=== PATIENT | male | born 1970 | race Two or more races ===

== ENCOUNTER 2021-01-22 11:40 | Outpatient (REF) | payer MEDICAID, SELFPAY ==
--- NOTE | ~2021-01-22 | XR_ITS ---
EXAMINATION: XR SHOULDER, RIGHT CLINICAL INFORMATION: Right shoulder pain COMPARISON: Chest radiographs 02/09/2019. TECHNIQUE: Right shoulder is imaged in 5 views. FINDINGS: There is no evidence of fracture or dislocation or destructive process. There is mild laxity of the humerus lower in position, aligning with the lower half glenoid fossa on frontal view. This is also suggested on the chest radiograph 2019. There are surgical clips overlying the right anterior shoulder soft tissues. The acromioclavicular alignment is normal. There is no visible rotator cuff calcifications. XR/XR shoulder RT min 2V IMPRESSION: 1. Laxity right shoulder with inferior positioning humeral head with respect to the glenoid fossa. 2. Acromioclavicular alignment normal. No fracture or dislocation or destructive process.
== END 2021-01-22 11:41 | disposition home or self-care (01) ==
LOC: HO.XRAY 11:40
PROVIDERS: PCP Registered Nurse; Visit Provider Registered Nurse
DX: G89.29 Other chronic pain (principal); M25.511 Pain in right shoulder
CPT/HCPCS: 73030

== ENCOUNTER 2021-01-23 10:47 | Outpatient (REF) | payer MEDICAID, SELFPAY ==
--- NOTE | ~2021-01-23 | XR_ITS ---
EXAMINATION: CERVICAL SPINE AND SOFT TISSUE NECK X-RAYS CLINICAL INFORMATION: Neck and right shoulder pain COMPARISON: Cervical spine MRI July 2008 TECHNIQUE: 5 views of the cervical spine and 2 views of the soft tissues of the neck FINDINGS: Cervical spine: Bone alignment is normal. No fracture or dislocation is seen. There is spondylosis at C3-C4 C4-C5 and C5-C6. Disc spaces are normal. There is right-sided neuroforaminal narrowing from bony osteophyte from C3-C4 to C5-C6. There is left-sided neuroforaminal narrowing from bony osteophyte from C3-C4 to C5-C6. Prevertebral soft tissues are normal. Soft tissues of the neck: Prevertebral soft tissues are normal. The epiglottis is normal. No abnormal air collection is seen. There are radiopaque densities seen in the right lateral neck and adjacent to the angle of the mandible questionable for calcifications. XR/XR soft tissue neck IMPRESSION: Cervical spine: Degenerative changes. Soft tissues of the neck: Radiopaque densities in the soft tissues of the right side of the neck and angle of the mandible, question representing calcifications.
--- NOTE | ~2021-01-23 | XR_ITS ---
EXAMINATION: CERVICAL SPINE AND SOFT TISSUE NECK X-RAYS CLINICAL INFORMATION: Neck and right shoulder pain COMPARISON: Cervical spine MRI July 2008 TECHNIQUE: 5 views of the cervical spine and 2 views of the soft tissues of the neck FINDINGS: Cervical spine: Bone alignment is normal. No fracture or dislocation is seen. There is spondylosis at C3-C4 C4-C5 and C5-C6. Disc spaces are normal. There is right-sided neuroforaminal narrowing from bony osteophyte from C3-C4 to C5-C6. There is left-sided neuroforaminal narrowing from bony osteophyte from C3-C4 to C5-C6. Prevertebral soft tissues are normal. Soft tissues of the neck: Prevertebral soft tissues are normal. The epiglottis is normal. No abnormal air collection is seen. There are radiopaque densities seen in the right lateral neck and adjacent to the angle of the mandible questionable for calcifications. XR/XR cervical spine min 6V IMPRESSION: Cervical spine: Degenerative changes. Soft tissues of the neck: Radiopaque densities in the soft tissues of the right side of the neck and angle of the mandible, question representing calcifications.
== END 2021-01-23 10:48 | disposition home or self-care (01) ==
LOC: HO.XRAY 10:47
PROVIDERS: PCP Registered Nurse; Visit Provider Registered Nurse
DX: M79.2 Neuralgia and neuritis, unspecified (principal); M25.511 Pain in right shoulder
CPT/HCPCS: 70360; 72052

== ENCOUNTER 2021-06-09 11:01 | Outpatient (REF) | payer MEDICAID, SELFPAY ==
[2021-06-09 12:58] LABS: MANUAL DIFF FLAG NO
[2021-06-09 13:05] LABS: Basophils Percent Auto 0.3 % (0-2); Eosinophils Absolute Auto 0.1 X10*3/uL (0.0-0.4); Eosinophils Percent Auto 1.1 % (0-4); Hematocrit 44.2 % (42-52); Hemoglobin 14.3 g/dl (14.0-18.0); Imm Gran Abs Auto 0.02 X10*3/uL (0.00-0.03); Imm Gran Pct Auto 0.2 % (0.0-0.4); Lymphocytes Absolute Auto 3.4 X10*3/uL (1.2-4.9); Lymphocytes Percent Auto 36.7 % (20-40); Mean Corpuscular HGB Conc 32.4 g/dl (31.0-36.0); Mean Corpuscular Hemoglobin 28.3 pg (27.0-33.0); Mean Corpuscular Volume 87.5 fL (80-98); Mean Platelet Volume 10.7 fL (9.4-12.4); Monocytes Absolute Auto 0.5 X10*3/uL (0.1-1.2); Monocytes Percent Auto 5.9 % (2-11); Neutrophils Absolute Auto 5.1 X10*3/uL (2.0-8.3); Neutrophils Percent Auto 55.8 % (45-73); Platelet Count 249 X10*3/uL (160-400); Red Blood Count 5.05 X10*6/uL (4.60-5.80); Red Cell Distribution Width 13.3 % (11.0-16.0); White Blood Count 9.2 X10*3/uL (4.8-10.8)
[2021-06-09 13:31] LABS: Alanine Aminotransferase 27 U/L (0-40); Albumin Level 3.8 g/dL (3.5-5.0); Alkaline Phosphatase 148 U/L (39-117); Anion Gap 12 (12-20); Aspartate Amino Transferase 14 U/L (5-37); Bilirubin Total < 0.2 mg/dL (0.0-1.0); Blood Urea Nitrogen 10 mg/dL (9-16); Calcium 9.5 mg/dL (8.4-10.2); Carbon Dioxide 27 mmol/L (22-29); Chloride 100 mmol/L (96-108); Estimated Glomerular Filt Rate > 60; Glucose Random 544 mg/dL (60-115); Potassium 4.8 mmol/L (3.3-5.1); Sodium 134 mmol/L (135-145); Total Protein 7.1 g/dL (6.5-8.0)
== END 2021-06-09 11:02 | disposition home or self-care (01) ==
LOC: HO.LAB 11:01
PROVIDERS: PCP Registered Nurse; Referring Provider Registered Nurse; Visit Provider Nurse Practitioner
DX: R13.10 Dysphagia, unspecified (principal); K21.9 Gastro-esophageal reflux disease without esophagitis; Z79.899 Other long term (current) drug therapy; Z71.3 Dietary counseling and surveillance
CPT/HCPCS: 36415; 80053; 85025

== ENCOUNTER → 2021-07-28 11:11 | Outpatient (BNVA) | payer MEDICAID, SELFPAY | PROVIDERS: PCP Registered Nurse; Visit Provider Nurse Practitioner | DX: Z12.11 Encounter for screening for malignant neoplasm of colon (principal); K21.9 Gastro-esophageal reflux disease without esophagitis | CPT/HCPCS: 99212 ==